=== PATIENT | male | born 1980 | race Caucasian/White ===

== ENCOUNTER 2022-01-20 15:53 | Emergency (ER) | payer MEDICAID ==
[~2022-01-20] VITALS: Ht 160 cm; Wt 65.8 kg
[2022-01-20 15:55] VITALS: BP_SYST 133
--- NOTE | 2022-01-20 19:52 | NUR ---
PREVIOUS SHIFT STATED PATIENT LEFT WITHOUT BEING SEEN.
== END 2022-01-20 23:06 | disposition left against medical advice (07) ==
LOC: SED 15:53
DX: R51.9 Headache, unspecified (principal); R42 Dizziness and giddiness; Z53.21 Procedure and treatment not carried out due to patient leaving prior to being seen by health care provider